=== PATIENT | male | born 1975 | race Two or more races ===

== ENCOUNTER 2024-08-11 07:14 | Day surgery (SDC) | payer OTHER ==
[~2024-08-11] VITALS: Ht 175.3 cm; Wt 88.7 kg
[~2024-08-11 07:14] MED LIST: Bupivacaine 0.5% W/EPI 1:200000 SDV 30 ML Vial ONE; Lactated Ringer's 1,000 ML IV ONE
[2024-08-11] MEDS ORDERED: CeFAZolin Sodium 2,000 MG VIAL ONE (07:27)
[2024-08-11] MEDS ORDERED: RIZATRIPTAN10 MG SL (07:37)
[2024-08-11] MEDS ORDERED: Lactated Ringer's 1,000 ML IV ONE ×2 (07:45→10:23)
--- NOTE | 2024-08-11 07:50 | NUR ---
08/11/24 0750 Kai Hernandez PT HAVING MIGRAINE. RN GAVE ICE PACK FOR HEADACHE. WILL INFORM ANESTHESIA.
[2024-08-11] MEDS ORDERED: Midazolam HCl 1MG / ML 2ML Vial ONE (08:15)
[2024-08-11] MEDS ORDERED: Dexmedetomidine HCL 200 MCG / 2 ML ONE (08:23)
[2024-08-11] MEDS ORDERED: FentaNYL Citrate 50 MCG/ML 2 ML Injection ONE (08:35)
[2024-08-11] MEDS ORDERED: propofoL 20 ML IV ONE (08:35)
[2024-08-11] MEDS ORDERED: Ondansetron HCl 2 MG / ML 2ML Vial ONE ×2 (08:46→11:30)
[2024-08-11] MEDS ORDERED: Dexamethasone Sod Phos 10 MG/ML 1ML VIAL ONE (08:46)
[2024-08-11] MEDS ORDERED: Lidocaine HCl/Pf 1% 5 ML VIAL ONE (08:49)
[2024-08-11] MEDS ORDERED: Phenylephrine HCl 100 MCG/ML-NS 10MLSYR (1MG/10ML) ONE ×2 (09:17→10:11)
--- NOTE | 2024-08-11 11:35 | NUR ---
08/11/24 1135 GLENDA MOORE PATIENT UP TO BATHROOM TO VOID, CG ASSIST, TRANSPORT W/C. UP IN RECLINER, GIRLFRIEND AT BEDSIDE. PT REPORTS FEELING "A LITTLE" NAUSEOUS, NO EMESIS AT THIS TIME.
== END 2024-08-11 12:21 | disposition home or self-care (01) ==
LOC: ORSCSDS 07:14
PROVIDERS: Podiatrist Foot & Ankle Surgery
PROC: 0QP104Z Removal of Internal Fixation Device from Sacrum, Open Approach (ICD-10-PCS; principal; 2024-08-11 08:30)
DX: T84.84XA Pain due to internal orthopedic prosthetic devices, implants and grafts, initial encounter (principal); Z79.899 Other long term (current) drug therapy
CPT/HCPCS: J0690; J1100; J2003; J2250; J2371; J2405; J2704; J3010; J7120